=== PATIENT | female | born 1935 | race Hispanic/Latino ===

== ENCOUNTER 2017-05-30 13:23 | Emergency (ER) | payer OTHER, MEDICARE ==
[~2017-05-30 13:23] MED LIST: ATOR10 PO; GLIP5TAB11 PO; HYDR-4060 PO; INSU100V12 SQ; KETO75CA PO; LISI30TA4 PO; MECL12.585 PO
[2017-05-30 14:07] LABS: BASOPHILS % (AUTO) 0.5 % (0.0-5.0); EOSINOPHILS % (AUTO) 1.2 % (0.0-8.0); HEMATOCRIT 33.4 % (36-48); LYMPHOCYTES % (AUTO) 20.1 % (21.0-51.0); MEAN CORPUSCULAR HGB CONC 33.1 g/dL (32.0-36.0); MEAN CORPUSCULAR VOLUME 87.8 fL (79-99); MONOCYTES % (AUTO) 6.5 % (3.0-13.0); NEUTROPHILS % (AUTO) 71.7 % (40.0-77.0); NUCLEATED RED BLOOD CELLS 0.1 % (0.0-0.19); PLATELET COUNT (AUTO) 184 K/uL (130-400); RED BLOOD CELL COUNT(AUTO) 3.81 MIL/uL (4.00-5.50); RED CELL DISTRIBUTION WIDTH 14.5 % (11.0-15.5); WHITE BLOOD COUNT (AUTO) 8.8 K/uL (4.8-10.8)
[2017-05-30 14:19] LABS: APPEARANCE,URINE CLEAR (CLEAR); BILIRUBIN,URINE NEGATIVE (NEGATIVE); COLOR,URINE YELLOW (YELLOW); GLUCOSE, URINE (UA) 100 mg/dL (NEGATIVE); KETONES,URINE NEGATIVE (NEGATIVE); LEUKOCYTE ESTERASE ,URINE MODERATE (NEGATIVE); NITRATE,URINE POSITIVE (NEGATIVE); OCCULT BLOOD,URINE NEGATIVE (NEGATIVE); PH,URINE 5.5 (5.0-8.0); PROTEIN,URINE 100 (NEGATIVE); UROBILINOGEN,URINE 0.2 mg/dL (0.2-1.0)
[2017-05-30 14:32] LABS: BACTERIA,URINE Few /HPF (None Seen); MUCUS,URINE Rare LPF (None Seen); SQUAMOUS EPITHELIAL CELL,UR Few /LPF (0-2)
[2017-05-30] MEDS ORDERED: LIDOCAINE HCL-MPF 1% 2ML VIAL ONE (14:57)
[2017-05-30] MEDS ORDERED: CEFTRIAXONE SODIUM 1 GM ONE (14:57)
[2017-05-30 15:07] LABS: CREATININE 1.2 mg/dL (0.5-1.5); POTASSIUM 5.6 mmol/L (3.5-5.1)
== END 2017-05-30 15:27 | disposition home or self-care (01) ==
LOC: EDH 13:23
DX: N39.0 Urinary tract infection, site not specified (principal); M79.1 Myalgia; E11.9 Type 2 diabetes mellitus without complications; E78.5 Hyperlipidemia, unspecified; I10 Essential (primary) hypertension; Z90.49 Acquired absence of other specified parts of digestive tract; Z98.890 Other specified postprocedural states; Z88.6 Allergy status to analgesic agent; Z88.8 Allergy status to other drugs, medicaments and biological substances; Z79.899 Other long term (current) drug therapy
CPT/HCPCS: 36415; 80048; 81001; 85025; 87804 ×2; 96372; 99284; J0696; J3490

== ENCOUNTER 2017-06-05 12:33 | Emergency (ER) | payer MEDICARE ==
[2017-06-05 13:59] LABS: APPEARANCE,URINE Clear (CLEAR); BILIRUBIN,URINE Negative (NEGATIVE); COLOR,URINE Yellow (YELLOW); GLUCOSE, URINE (UA) >=1000 mg/dL (NEGATIVE); KETONES,URINE Negative (NEGATIVE); LEUKOCYTE ESTERASE ,URINE Trace (NEGATIVE); NITRATE,URINE Negative (NEGATIVE); OCCULT BLOOD,URINE Negative (NEGATIVE); PROTEIN,URINE POS 2+ (NEGATIVE); UROBILINOGEN,URINE 0.2 mg/dL (0.2-1.0)
[2017-06-05 14:18] LABS: BACTERIA,URINE None Seen /HPF (None Seen); RBC,URINE None Seen /HPF (0-1); WBC,URINE None Seen /HPF (0-1)
[2017-06-05 14:19] LABS: RENAL EPITHELIAL CELLS,URINE Few /LPF (None Seen); TRANSITIONAL EPI CELLS,URINE Few /LPF (None Seen)
[2017-06-05] MEDS ORDERED: LIDOCAINE HCL 1% 20 ML VIAL ONE (14:22)
[2017-06-05] MEDS ORDERED: TETANUS/DIPHTHERIA TOXOID [ADULT] 0.5 ML VIAL IM ONE (16:04)
== END 2017-06-05 16:19 | disposition home or self-care (01) ==
LOC: EDH 12:33
DX: S01.511A Laceration without foreign body of lip, initial encounter (principal); S89.92XA Unspecified injury of left lower leg, initial encounter; M54.2 Cervicalgia; I10 Essential (primary) hypertension; E78.5 Hyperlipidemia, unspecified; E11.9 Type 2 diabetes mellitus without complications; G89.29 Other chronic pain; Z88.6 Allergy status to analgesic agent; Z88.8 Allergy status to other drugs, medicaments and biological substances; Z79.899 Other long term (current) drug therapy; Z98.890 Other specified postprocedural states; W18.39XA Other fall on same level, initial encounter; Y93.01 Activity, walking, marching and hiking; Y92.89 Other specified places as the place of occurrence of the external cause; Y99.8 Other external cause status
CPT/HCPCS: 12011; 72125; 73562; 81001; 90471; 90714

== ENCOUNTER 2017-07-21 16:51 | Inpatient (IN) | payer OTHER, MEDICARE ==
[~2017-07-21] VITALS: Ht 157.5 cm; Wt 79.8 kg
[~2017-07-21 16:51] MED LIST changes: -KETO75CA PO; +KETO75CA11 PO
[2017-07-21 17:24] LABS: BASOPHILS % (AUTO) 0.8 % (0.0-5.0); EOSINOPHILS % (AUTO) 0.5 % (0.0-8.0); HEMATOCRIT 32.8 % (36-48); LYMPHOCYTES % (AUTO) 5.7 % (21.0-51.0); MEAN CORPUSCULAR HEMOGLOBIN 28.1 pg (27.0-33.0); MEAN CORPUSCULAR HGB CONC 33.1 g/dL (32.0-36.0); MEAN CORPUSCULAR VOLUME 84.8 fL (79-99); MONOCYTES % (AUTO) 3.2 % (3.0-13.0); NEUTROPHILS % (AUTO) 89.8 % (40.0-77.0); PLATELET COUNT (AUTO) 136 K/uL (130-400); RED BLOOD CELL COUNT(AUTO) 3.87 MIL/uL (4.00-5.50); RED CELL DISTRIBUTION WIDTH 15.1 % (11.0-15.5); WHITE BLOOD COUNT (AUTO) 7.6 K/uL (4.8-10.8)
[2017-07-21] MEDS ORDERED: ACETAMINOPHEN 325 MG TAB ONE (17:28)
[2017-07-21] MEDS ORDERED: MEROPENEM 1 GM VIAL ONE (17:28)
[2017-07-21] MEDS ORDERED: ONDANSETRON HCL 4 MG/2 ML VIAL ONE (17:28)
[2017-07-21] MEDS ORDERED: SODIUM CHLORIDE 0.9% 1000ML 2,000 ML IV ONE (17:28)
[2017-07-21 17:33] LABS: APPEARANCE,URINE CLOUDY (CLEAR); BILIRUBIN,URINE NEGATIVE (NEGATIVE); COLOR,URINE YELLOW (YELLOW); GLUCOSE, URINE (UA) 500 mg/dL (NEGATIVE); KETONES,URINE 5 mg/dL (NEGATIVE); LEUKOCYTE ESTERASE ,URINE TRACE (NEGATIVE); NITRATE,URINE NEGATIVE (NEGATIVE); OCCULT BLOOD,URINE SMALL (NEGATIVE); PH,URINE 5.5 (5.0-8.0); PROTEIN,URINE >=300 (NEGATIVE); UROBILINOGEN,URINE 0.2 mg/dL (0.2-1.0)
[2017-07-21 17:35] LABS: CARBON DIOXIDE 24 mmol/L (21-32); CHLORIDE 101 mmol/L (101-111); CREATININE 1.6 mg/dL (0.5-1.5); GLOMERULAR FILTR. RATE CALC 33 mL/min (>60); GLUCOSE,RANDOM 327 mg/dL (70-105); POTASSIUM 4.9 mmol/L (3.5-5.1); SODIUM SERUM 135 mmol/L (136-145); UREA NITROGEN, BLOOD 38 mg/dL (7-18)
[2017-07-21 17:38] LABS: INR 0.96 (0.85-1.15); PROTHROMBIN TIME 10.1 SEC (9.6-11.6)
[2017-07-21 17:47] LABS: BACTERIA,URINE Moderate /HPF (None Seen)
[2017-07-21 17:50] LABS: ALANINE AMINOTRANSFERASE 29 U/L (12-78); ALBUMIN 3.2 g/dL (3.5-5.0); ASPARTATE AMINOTRANSFERASE 25 U/L (10-37); BILIRUBIN,TOTAL 1.2 mg/dL (0.2-1.0); CREATINE KINASE MB < 0.5 ng/mL (0.5-3.6); CREATINE KINASE, TOTAL 33 U/L (21-232); MYOGLOBIN 89 ng/mL (10-92); TOTAL PROTEIN, SERUM 7.2 g/dL (6.0-8.3); TROPONIN I 0.06 ng/mL (0.00-0.06)
[2017-07-21 17:54] LABS: SQUAMOUS EPITHELIAL CELL,UR Few /LPF (0-2)
[2017-07-21] MEDS ORDERED: VANCOMYCIN 1GM+NS 250ML 250 ML IV ONE (18:18)
[2017-07-21] MEDS ORDERED: SODIUM CHLORIDE 0.9% 1000ML 1,000 ML IV SCH (22:00)
[2017-07-21] MEDS ORDERED: CEFTRIAXONE SODIUM 1 GM ONE (23:26)
[2017-07-21] MEDS ORDERED: SODIUM CHLORIDE 0.9% 1000ML 1,000 ML IV ONE (23:26)
[2017-07-22] MEDS ORDERED: ACETAMINOPHEN 325 MG TAB ONE ×2 (04:42→12:28)
[2017-07-22 04:59] VITALS: BP 140/71
[2017-07-22] MEDS ORDERED: ONDANSETRON HCL 4 MG/2 ML VIAL IVP PRN ×3 (05:15→18:00)
[2017-07-22] MEDS ORDERED: CEFTRIAXONE 1GM/D5W 50ML 50 ML IV SCH (05:15)
[2017-07-22] MEDS ORDERED: DIPHENHYDRAMINE HCL 25 MG CAPSULE PO PRN ×3 (05:15→18:00)
[2017-07-22] MEDS: SODIUM CHLORIDE 0.9% 1000ML 1,000 ML IV SCH ×2 (05:15→17:01)
[2017-07-22] MEDS ORDERED: LACTULOSE 20 GM/30 ML UDCUP PO PRN ×3 (05:15→18:00)
[2017-07-22] MEDS ORDERED: GUAIFENESIN-DM 200/20 MG 10 ML PO PRN ×3 (05:15→18:00)
[2017-07-22] MEDS ORDERED: CLONIDINE HCL 0.1 MG TABLET PO PRN (05:15)
[2017-07-22] MEDS ORDERED: NITROGLYCERIN 0.4 MG SL TAB SL PRN ×3 (05:15→18:00)
[2017-07-22] MEDS ORDERED: SODIUM CHLORIDE 0.9% 1000ML 1,000 ML IV ONE (05:26)
[2017-07-22] MEDS: CEFTRIAXONE SODIUM 1 GM IVP SCH (06:30)
[2017-07-22 08:03] VITALS: BP 134/65
[2017-07-22] MEDS ORDERED: DiphenhydrAMINE HCL 50 MG/ML VIAL IVP PRN ×2 (11:00→18:00)
[2017-07-22] MEDS ORDERED: ACETAMINOPHEN 325 MG TAB PO PRN ×2 (11:00)
[2017-07-22] MEDS ORDERED: GUAIFENESIN SUGAR-FREE 100 MG/5 ML UDCUP PO PRN ×2 (11:00→18:00)
[2017-07-22] MEDS ORDERED: ZOLPIDEM TARTRATE 5 MG TAB PO PRN ×2 (11:00→18:00)
[2017-07-22] MEDS ORDERED: MAG HYDROX/AL HYDROX/SIMETH ES 30 ML SUSP UDCUP PO PRN ×2 (11:00→18:00)
[2017-07-22 12:00] VITALS: BP 168/82
[2017-07-22] MEDS ORDERED: ONDA4TAB10 PO (12:38)
[2017-07-22 14:40] VITALS: BP 156/62
[2017-07-22 19:50] VITALS: BP 138/89
[2017-07-22] MEDS: ZOLPIDEM TARTRATE 5 MG TAB PO SCH (21:00)
[2017-07-22] MEDS: ATORVASTATIN CALCIUM 40 MG TABLET PO SCH (22:05)
[2017-07-22] MEDS: GLIPIZIDE 5 MG TABLET PO SCH (22:05)
[2017-07-22] MEDS: ACETAMINOPHEN 325 MG TAB PO PRN (22:09)
[2017-07-23 00:08] VITALS: BP 149/60
[2017-07-23] MEDS: SODIUM CHLORIDE 0.9% 1000ML 1,000 ML IV SCH ×3 (03:47→18:07)
[2017-07-23 04:35] VITALS: BP 118/66
[2017-07-23] MEDS: CEFTRIAXONE SODIUM 1 GM IVP SCH (06:05)
[2017-07-23 08:00] VITALS: BP 152/78
[2017-07-23] MEDS ORDERED: INSULIN DETEMIR 10ML 100 UNIT/ML 10ML SQ SCH (08:00)
[2017-07-23] MEDS ORDERED: CEFTRIAXONE SODIUM 1 GM IVP SCH (09:00)
[2017-07-23] MEDS: GLIPIZIDE 5 MG TABLET PO SCH ×2 (11:39→21:39)
[2017-07-23] MEDS: LISINOPRIL 10 MG TABLET PO SCH (11:40)
[2017-07-23] MEDS: MECLIZINE HCL 12.5 MG TABLET PO SCH (11:40)
[2017-07-23] MEDS: ACETAMINOPHEN 325 MG TAB PO PRN (11:44)
[2017-07-23 12:00] VITALS: BP 180/75
[2017-07-23] MEDS: CLONIDINE HCL 0.1 MG TABLET PO PRN (12:25)
[2017-07-23 16:00] VITALS: BP 129/76
[2017-07-23] MEDS: METRONIDAZOLE 500MG/100ML BAG 100 ML IV SCH (18:05)
[2017-07-23] MEDS: INSULIN HUMULIN R 100 UNIT/ML 3ML SQ SCH ×2 (18:11→21:42)
[2017-07-23 19:00] VITALS: BP 139/60
[2017-07-23] MEDS: ATORVASTATIN CALCIUM 40 MG TABLET PO SCH (21:39)
[2017-07-23] MEDS: ZOLPIDEM TARTRATE 5 MG TAB PO SCH (21:40)
[2017-07-24] VITALS: BP 139/61
[2017-07-24] MEDS: METRONIDAZOLE 500MG/100ML BAG 100 ML IV SCH ×4 (00:52→21:19)
[2017-07-24 04:00] VITALS: BP 140/73
[2017-07-24] MEDS: CEFTRIAXONE SODIUM 1 GM IVP SCH (05:42)
[2017-07-24] MEDS: INSULIN HUMULIN R 100 UNIT/ML 3ML SQ SCH ×4 (05:49→21:25)
[2017-07-24 08:00] VITALS: BP 134/74
[2017-07-24] MEDS: GLIPIZIDE 5 MG TABLET PO SCH ×2 (08:02→21:19)
[2017-07-24] MEDS: LISINOPRIL 10 MG TABLET PO SCH (08:02)
[2017-07-24] MEDS: MECLIZINE HCL 12.5 MG TABLET PO SCH (08:08)
[2017-07-24] MEDS: INSULIN GLARGINE 100 UNITS/ML 10 ML VIAL SQ SCH ×2 (08:14→17:38)
[2017-07-24 11:00] VITALS: BP 185/92
[2017-07-24] MEDS: ACETAMINOPHEN 325 MG TAB PO PRN (11:41)
[2017-07-24 13:25] LABS: POTASSIUM 3.8 mmol/L (3.5-5.1)
[2017-07-24 13:30] LABS: ALBUMIN 2.4 g/dL (3.5-5.0); BILIRUBIN,TOTAL 0.6 mg/dL (0.2-1.0); TOTAL PROTEIN, SERUM 6.6 g/dL (6.0-8.3)
[2017-07-24 16:00] VITALS: BP 149/93
[2017-07-24] MEDS: SODIUM CHLORIDE 0.9% 1000ML 1,000 ML IV SCH (16:05)
[2017-07-24] MEDS ORDERED: KETOROLAC TROMETHAMINE 30MG/ML IV PRN (16:30)
[2017-07-24] MEDS ORDERED: KETOROLAC TROMETHAMINE 30MG/ML ONE (17:08)
[2017-07-24 19:00] VITALS: BP 161/92
[2017-07-24] MEDS: ATORVASTATIN CALCIUM 40 MG TABLET PO SCH (21:19)
[2017-07-24] MEDS: ZOLPIDEM TARTRATE 5 MG TAB PO SCH (21:19)
[2017-07-25] VITALS: BP 147/88
[2017-07-25] MEDS: SODIUM CHLORIDE 0.9% 1000ML 1,000 ML IV SCH ×2 (02:14→14:15)
[2017-07-25 04:00] VITALS: BP 150/72
[2017-07-25] MEDS: METRONIDAZOLE 500MG/100ML BAG 100 ML IV SCH ×3 (05:57→20:57)
[2017-07-25] MEDS: CEFTRIAXONE SODIUM 1 GM IVP SCH (05:57)
[2017-07-25] MEDS: INSULIN HUMULIN R 100 UNIT/ML 3ML SQ SCH ×4 (06:29→21:04)
[2017-07-25 08:00] VITALS: BP 157/78
[2017-07-25] MEDS: LISINOPRIL 10 MG TABLET PO SCH (11:09)
[2017-07-25] MEDS: MECLIZINE HCL 12.5 MG TABLET PO SCH (11:09)
[2017-07-25] MEDS: GLIPIZIDE 5 MG TABLET PO SCH ×2 (11:09→20:57)
[2017-07-25] MEDS: INSULIN GLARGINE 100 UNITS/ML 10 ML VIAL SQ SCH ×2 (11:17→16:54)
[2017-07-25 11:39] VITALS: BP 194/96
[2017-07-25] MEDS: CLONIDINE HCL 0.1 MG TABLET PO PRN ×2 (14:08→17:15)
[2017-07-25 16:00] VITALS: BP 187/80
[2017-07-25 19:00] VITALS: BP 147/77
[2017-07-25] MEDS: ZOLPIDEM TARTRATE 5 MG TAB PO SCH (20:57)
[2017-07-25] MEDS: ATORVASTATIN CALCIUM 40 MG TABLET PO SCH (20:57)
[2017-07-26] VITALS (7 sets, daily range): BP systolic 145–183; BP diastolic 49–92
[2017-07-26] MEDS: SODIUM CHLORIDE 0.9% 1000ML 1,000 ML IV SCH (03:23)
[2017-07-26] MEDS: METRONIDAZOLE 500MG/100ML BAG 100 ML IV SCH ×3 (05:00→20:48)
[2017-07-26] MEDS: CEFTRIAXONE SODIUM 1 GM IVP SCH (05:26)
[2017-07-26] MEDS: INSULIN HUMULIN R 100 UNIT/ML 3ML SQ SCH ×4 (05:41→20:59)
[2017-07-26] MEDS: LISINOPRIL 10 MG TABLET PO SCH (09:04)
[2017-07-26] MEDS: GLIPIZIDE 5 MG TABLET PO SCH ×2 (09:04→20:59)
[2017-07-26] MEDS: MECLIZINE HCL 12.5 MG TABLET PO SCH (09:04)
[2017-07-26] MEDS: INSULIN GLARGINE 100 UNITS/ML 10 ML VIAL SQ SCH ×2 (09:12→20:57)
[2017-07-26] MEDS: ACETAMINOPHEN 325 MG TAB PO PRN (12:12)
[2017-07-26] MEDS ORDERED: FUROSEMIDE 10 MG/ML 4ML VIAL IV SCH (14:00)
[2017-07-26] MEDS: TRAMADOL HCL 50 MG TABLET PO PRN (14:44)
[2017-07-26] MEDS: CLONIDINE HCL 0.1 MG TABLET PO PRN (15:58)
[2017-07-26] MEDS: ZOLPIDEM TARTRATE 5 MG TAB PO SCH (20:58)
[2017-07-26] MEDS: ATORVASTATIN CALCIUM 40 MG TABLET PO SCH (20:59)
[2017-07-27] MEDS: TRAMADOL HCL 50 MG TABLET PO PRN (03:12)
[2017-07-27 04:00] VITALS: BP 159/74
[2017-07-27] MEDS: METRONIDAZOLE 500MG/100ML BAG 100 ML IV SCH ×3 (05:20→21:28)
[2017-07-27] MEDS: CEFTRIAXONE SODIUM 1 GM IVP SCH (05:20)
[2017-07-27] MEDS: INSULIN HUMULIN R 100 UNIT/ML 3ML SQ SCH ×4 (05:26→21:34)
[2017-07-27 08:00] VITALS: BP 154/83
[2017-07-27] MEDS: MECLIZINE HCL 12.5 MG TABLET PO SCH (08:21)
[2017-07-27] MEDS: GLIPIZIDE 5 MG TABLET PO SCH ×2 (08:21→21:29)
[2017-07-27] MEDS: LISINOPRIL 10 MG TABLET PO SCH (08:21)
[2017-07-27] MEDS: INSULIN GLARGINE 100 UNITS/ML 10 ML VIAL SQ SCH ×2 (08:29→17:19)
[2017-07-27 12:00] VITALS: BP 133/74
[2017-07-27] MEDS: ACETAMINOPHEN 325 MG TAB PO PRN ×2 (15:08→21:36)
[2017-07-27 16:00] VITALS: BP 166/79
[2017-07-27 20:00] VITALS: BP 151/83
[2017-07-27] MEDS: ATORVASTATIN CALCIUM 40 MG TABLET PO SCH (21:28)
[2017-07-27] MEDS: ZOLPIDEM TARTRATE 5 MG TAB PO SCH (21:29)
[2017-07-27 23:46] VITALS: BP 172/84
[2017-07-27] MEDS: CLONIDINE HCL 0.1 MG TABLET PO PRN (23:53)
[2017-07-28 00:49] VITALS: BP 164/87
[2017-07-28 04:00] VITALS: BP 145/77
[2017-07-28] MEDS: METRONIDAZOLE 500MG/100ML BAG 100 ML IV SCH ×2 (04:26→14:14)
[2017-07-28] MEDS: CEFTRIAXONE SODIUM 1 GM IVP SCH (04:26)
[2017-07-28] MEDS: INSULIN HUMULIN R 100 UNIT/ML 3ML SQ SCH ×2 (06:07→11:30)
[2017-07-28 07:00] VITALS: BP 198/94
[2017-07-28] MEDS: INSULIN GLARGINE 100 UNITS/ML 10 ML VIAL SQ SCH (08:00)
[2017-07-28] MEDS: LISINOPRIL 10 MG TABLET PO SCH (08:30)
[2017-07-28] MEDS: GLIPIZIDE 5 MG TABLET PO SCH (08:31)
[2017-07-28] MEDS: TRAMADOL HCL 50 MG TABLET PO PRN (08:32)
[2017-07-28] MEDS: MECLIZINE HCL 12.5 MG TABLET PO SCH (08:32)
[2017-07-28] MEDS: CLONIDINE HCL 0.1 MG TABLET PO PRN (10:21)
[2017-07-28 10:22] VITALS: BP 184/90
[2017-07-28 11:00] VITALS: BP 135/65
[2017-07-28 15:48] VITALS: BP 149/66
== END 2017-07-28 17:53 | disposition home or self-care (01) | DRG 641 ==
LOC: EDH 16:51 → EDHIP 21:20 → OBSVTOIN 21:20 → 3CH 07-22 15:17
PROVIDERS: ADMIT Family Medicine; ATTEND Family Medicine
DX: E86.0 Dehydration (principal); E11.9 Type 2 diabetes mellitus without complications; R50.9 Fever, unspecified; I10 Essential (primary) hypertension; E78.5 Hyperlipidemia, unspecified; G89.4 Chronic pain syndrome; Z88.6 Allergy status to analgesic agent; Z88.5 Allergy status to narcotic agent; Z88.8 Allergy status to other drugs, medicaments and biological substances; Z79.899 Other long term (current) drug therapy
CPT/HCPCS: 36415; 71045; 80053; 81001; 82550; 82553; 82948; 83605; 83874; 84484; 85025; 85610; 85730; 87040; 87088; 87186; 87507; 87804; 93005; 97039; A4218; J0696; J1815; J1885; J1940; J2185; J2405; J3370; J3490; J7030

== ENCOUNTER 2017-10-30 11:51 | Emergency (ER) | payer OTHER, MEDICARE ==
[~2017-10-30 11:51] MED LIST changes: +ONDA4TAB10 PO
[2017-10-30 12:23] LABS: BASOPHILS % (AUTO) 0.7 % (0.0-5.0); EOSINOPHILS % (AUTO) 2.6 % (0.0-8.0); HEMATOCRIT 31.2 % (36-48); LYMPHOCYTES % (AUTO) 23.2 % (21.0-51.0); MEAN CORPUSCULAR HEMOGLOBIN 29.2 pg (27.0-33.0); MEAN CORPUSCULAR HGB CONC 33.8 g/dL (32.0-36.0); MEAN CORPUSCULAR VOLUME 86.5 fL (79-99); MONOCYTES % (AUTO) 7.7 % (3.0-13.0); NEUTROPHILS % (AUTO) 65.8 % (40.0-77.0); PLATELET COUNT (AUTO) 175 K/uL (130-400); RED CELL DISTRIBUTION WIDTH 15.6 % (11.0-15.5); WHITE BLOOD COUNT (AUTO) 7.7 K/uL (4.8-10.8)
[2017-10-30] MEDS ORDERED: ONDANSETRON HCL 4 MG/2 ML VIAL ONE (12:29)
[2017-10-30] MEDS ORDERED: KETOROLAC TROMETHAMINE 30MG/ML ONE (12:29)
[2017-10-30 12:32] LABS: CREATININE 1.5 mg/dL (0.5-1.5); POTASSIUM 5.6 mmol/L (3.5-5.1)
[2017-10-30 12:37] LABS: ALBUMIN 3.4 g/dL (3.5-5.0); BILIRUBIN,TOTAL 0.7 mg/dL (0.2-1.0); TOTAL PROTEIN, SERUM 7.2 g/dL (6.0-8.3)
[2017-10-30] MEDS ORDERED: SODIUM POLYSTYRENE SULFONATE 15 GM/60 ML ML ONE (12:45)
[2017-10-30 15:55] LABS: BILIRUBIN,URINE Negative (NEGATIVE); COLOR,URINE Yellow (YELLOW); GLUCOSE, URINE (UA) TRACE mg/dL (NEGATIVE); KETONES,URINE Negative (NEGATIVE); LEUKOCYTE ESTERASE ,URINE Negative (NEGATIVE); NITRATE,URINE Negative (NEGATIVE); OCCULT BLOOD,URINE Negative (NEGATIVE); PROTEIN,URINE POS 2+ (NEGATIVE)
[2017-10-30 16:03] LABS: APPEARANCE,URINE SLIGHTLY CLOUDY (CLEAR)
[2017-10-30 16:14] LABS: BACTERIA,URINE Few /HPF (None Seen); RBC,URINE 0-1 /HPF (0-1); WBC,URINE 0-1 /HPF (0-1)
[2017-10-30 16:15] LABS: HYALINE CASTS, URINE 0-1 /LPF (0-1 /LPF); MUCUS,URINE Few LPF (None Seen); SQUAMOUS EPITHELIAL CELL,UR Few /HPF (0-2)
== END 2017-10-30 16:37 | disposition home or self-care (01) ==
LOC: EDH 11:51
DX: R53.1 Weakness (principal); E11.9 Type 2 diabetes mellitus without complications; E78.5 Hyperlipidemia, unspecified; I10 Essential (primary) hypertension; G89.29 Other chronic pain; Z88.6 Allergy status to analgesic agent; Z88.8 Allergy status to other drugs, medicaments and biological substances; Z88.1 Allergy status to other antibiotic agents; Z98.890 Other specified postprocedural states
CPT/HCPCS: 36415; 71045; 80053; 81001; 84484; 85025; 93005; 96374; 96375; 99285; J1885; J2405

== ENCOUNTER 2018-03-05 12:28 | Emergency (ER) | payer OTHER, MEDICARE | END 2018-03-05 15:05 | disposition home or self-care (01) | LOC: EDH 12:28 | DX: M25.552 Pain in left hip (principal); M79.18 Myalgia, other site; G89.29 Other chronic pain; I10 Essential (primary) hypertension; E78.5 Hyperlipidemia, unspecified; E11.9 Type 2 diabetes mellitus without complications; Z98.890 Other specified postprocedural states; Z88.1 Allergy status to other antibiotic agents; Z88.6 Allergy status to analgesic agent; Z88.8 Allergy status to other drugs, medicaments and biological substances | CPT/HCPCS: 72170; 73502 ==

== ENCOUNTER 2018-08-22 15:32 | Emergency (ER) | payer OTHER, MEDICARE ==
[2018-08-22 16:29] LABS: BASOPHILS % (AUTO) 0.2 % (0.0-5.0); EOSINOPHILS % (AUTO) 0.2 % (0.0-8.0); HEMATOCRIT 41.4 % (36-48); LYMPHOCYTES % (AUTO) 9.3 % (21.0-51.0); MEAN CORPUSCULAR HEMOGLOBIN 28.8 pg (27.0-33.0); MEAN CORPUSCULAR HGB CONC 32.5 g/dL (32.0-36.0); MEAN CORPUSCULAR VOLUME 88.7 fL (79-99); MONOCYTES % (AUTO) 6.4 % (3.0-13.0); NEUTROPHILS % (AUTO) 83.9 % (40.0-77.0); PLATELET COUNT (AUTO) 254 K/uL (130-400); RED BLOOD CELL COUNT(AUTO) 4.67 MIL/uL (4.00-5.50); RED CELL DISTRIBUTION WIDTH 15.4 % (11.0-15.5); WHITE BLOOD COUNT (AUTO) 11.3 K/uL (4.8-10.8)
[2018-08-22 16:34] LABS: APPEARANCE,URINE Clear (CLEAR); BILIRUBIN,URINE Negative (NEGATIVE); COLOR,URINE Dark Yellow (YELLOW); GLUCOSE, URINE (UA) 250 mg/dL (NEGATIVE); KETONES,URINE Trace mg/dL (NEGATIVE); LEUKOCYTE ESTERASE ,URINE Trace (NEGATIVE); NITRATE,URINE Negative (NEGATIVE); OCCULT BLOOD,URINE Negative (NEGATIVE); PROTEIN,URINE 300 mg/dL (NEGATIVE)
[2018-08-22 16:38] LABS: CREATININE 1.5 mg/dL (0.5-1.5); POTASSIUM 4.9 mmol/L (3.5-5.1)
[2018-08-22 16:42] LABS: ALBUMIN 3.3 g/dL (3.5-5.0); BILIRUBIN,TOTAL 1.2 mg/dL (0.2-1.0); TOTAL PROTEIN, SERUM 7.3 g/dL (6.0-8.3)
[2018-08-22] MEDS ORDERED: INSULIN HUMULIN R 100 UNIT/ML 3ML ONE (16:56)
[2018-08-22] MEDS ORDERED: SODIUM CHLORIDE 0.9% 1000ML 1,000 ML IV ONE (17:00)
[2018-08-22 17:20] LABS: AMORPHOUS SEDIMENT,UR Moderate /LPF (None Seen); BACTERIA,URINE Rare /HPF (None Seen); MUCUS,URINE Few LPF (None Seen); RBC,URINE None Seen /HPF (0-1); TRANSITIONAL EPI CELLS,URINE Moderate /HPF (None Seen)
[2018-08-22] MEDS ORDERED: METRONIDAZOLE 500 MG TABLET ONE (20:39)
== END 2018-08-22 20:48 | disposition home or self-care (01) ==
LOC: EDH 15:32
DX: A09 Infectious gastroenteritis and colitis, unspecified (principal); E11.65 Type 2 diabetes mellitus with hyperglycemia; E86.0 Dehydration; I10 Essential (primary) hypertension; E78.5 Hyperlipidemia, unspecified; G89.29 Other chronic pain; Z98.890 Other specified postprocedural states; Z88.5 Allergy status to narcotic agent; Z88.6 Allergy status to analgesic agent; Z88.8 Allergy status to other drugs, medicaments and biological substances
CPT/HCPCS: 36415; 71045; 74176; 80053; 81001; 82009; 82150; 82550; 82948; 83690; 84484; 85025; 87804 ×2; 93005; 96361; 96374; 99284; J1815; J7030

== ENCOUNTER → 2018-09-21 | Outpatient (CLI) | payer OTHER, MEDICARE | END | disposition home or self-care (01) | LOC: OIH 15:28 | PROVIDERS: ATTEND Family Medicine | DX: S43.421A Sprain of right rotator cuff capsule, initial encounter (principal); M13.811 Other specified arthritis, right shoulder; X58.XXXA Exposure to other specified factors, initial encounter; Y93.89 Activity, other specified; Y92.89 Other specified places as the place of occurrence of the external cause; Y99.8 Other external cause status | CPT/HCPCS: 73030 ==

== ENCOUNTER 2019-04-10 11:52 | Emergency (ER) | payer OTHER, MEDICARE ==
[~2019-04-10 11:52] MED LIST changes: -ATOR10 PO; +ATOR10TA69 PO; +BACL10TA PO; -KETO75CA11 PO; -LISI30TA4 PO; +LISI40TA4 PO; +METR-172 PO; +TRAZ-185 PO
[2019-04-10 12:26] LABS: HEMATOCRIT 32.4 % (36-48); LYMPHOCYTES % (AUTO) 16.9 % (21.0-51.0); MEAN CORPUSCULAR HEMOGLOBIN 29.1 pg (27.0-33.0); MEAN CORPUSCULAR HGB CONC 32.9 g/dL (32.0-36.0); MEAN CORPUSCULAR VOLUME 88.6 fL (79-99); MONOCYTES % (AUTO) 8.9 % (3.0-13.0); NEUTROPHILS % (AUTO) 72.2 % (40.0-77.0); PLATELET COUNT (AUTO) 223 K/uL (130-400); RED BLOOD CELL COUNT(AUTO) 3.66 MIL/uL (4.00-5.50); RED CELL DISTRIBUTION WIDTH 16.5 % (11.0-15.5); WHITE BLOOD COUNT (AUTO) 4.9 K/uL (4.8-10.8)
[2019-04-10 12:39] LABS: CREATININE 1.6 mg/dL (0.5-1.5); POTASSIUM 3.9 mmol/L (3.5-5.1)
[2019-04-10 12:44] LABS: BILIRUBIN,TOTAL 0.8 mg/dL (0.2-1.0); TOTAL PROTEIN, SERUM 7.2 g/dL (6.0-8.3)
[2019-04-10] MEDS ORDERED: DIPHENOXYLATE HCL/ATROPINE 2.5/0.025 MG TAB PO ONE (12:47)
[2019-04-10] MEDS ORDERED: SODIUM CHLORIDE 0.9% 1000ML 1,000 ML IV ONE (12:47)
== END 2019-04-10 15:56 | disposition home or self-care (01) ==
LOC: EDH 11:52
DX: R19.7 Diarrhea, unspecified (principal); E11.9 Type 2 diabetes mellitus without complications; E78.5 Hyperlipidemia, unspecified; I10 Essential (primary) hypertension; Z88.5 Allergy status to narcotic agent; Z88.8 Allergy status to other drugs, medicaments and biological substances
CPT/HCPCS: 36415; 80053; 82948; 83690; 85025; 96360; 96361; 99285; J7030; 96375

== ENCOUNTER → 2019-08-04 | Outpatient (CLI) | payer OTHER, MEDICARE ==
[~2019-08-04] MED LIST changes: +MECL-183 PO; -MECL12.585 PO
== END | disposition home or self-care (01) ==
LOC: OIH 08:33
PROVIDERS: ATTEND Family Medicine
DX: R07.81 Pleurodynia (principal); M19.012 Primary osteoarthritis, left shoulder
CPT/HCPCS: 71100